=== PATIENT | male | born 1980 | race Caucasian/White ===

== ENCOUNTER 2020-04-14 08:15 | Outpatient (CLI) | payer MEDICAID, SELFPAY ==
[2020-04-14 12:58] LABS: Calculated LDL 159 mg/dL (<100); Cholesterol 222 mg/dL (<200); Glucose 96 mg/dL (74-106); HDL Cholesterol 34 mg/dL (40-60); Triglyceride 146 mg/dL (<150)
[2020-04-14 15:01] LABS: CREATININE 1.1 mg/dL (0.70-1.30); Potassium 4.3 mmol/L (3.5-5.1)
== END 2020-04-14 08:16 | disposition home or self-care (01) ==
PROVIDERS: PCP Family Medicine; Visit Provider Family Medicine
DX: I10 Essential (primary) hypertension (principal); E78.5 Hyperlipidemia, unspecified; R73.9 Hyperglycemia, unspecified
CPT/HCPCS: 36415; 80061; 82947; 82565; 84132

== ENCOUNTER 2022-01-19 08:40 | Outpatient (CLI) | payer MEDICAID, SELFPAY ==
[2022-01-19 12:30] LABS: HCT 45.8 % (40.0-50.0); HGB 15.8 g/dL (13.5-17.5); MCH 29.6 pg (27.0-33.0); MCHC 34.5 % (32.0-36.0); MCV 86 fL (80-95); MPV 10.4 fL (8.0-11.0); Platelet Count 241 10^3/uL (130-400); RBC 5.33 10^6/uL (4.36-5.78); RDW 12.5 % (11.8-14.1); RDW-SD 38.9 fL; WBC 7.89 10^3/uL (4.4-10.8)
[2022-01-19 12:50] LABS: ALT 43 U/L (16-63); AST 21 U/L (15-37); Albumin 4.3 g/dL (3.4-5.0); Alkaline Phosphatase 55 U/L (46-116); Anion Gap 9.3 mmol/L (3-11); BUN 15 mg/dL (7-18); Bilirubin, Total 0.5 mg/dL (0.2-1.0); CO2 25.7 mmol/L (21.0-32.0); CREATININE 1.1 mg/dL (0.70-1.30); Calcium 9.2 mg/dL (8.5-10.1); Calculated LDL 138 mg/dL (<100); Chloride 104 mmol/L (98-107); Cholesterol 218 mg/dL (<200); Estimated GFR 85.95 (mL/min/1.73m2); Glucose 100 mg/dL (74-106); HDL Cholesterol 55 mg/dL (40-60); Potassium 4.1 mmol/L (3.5-5.1); Sodium 139 mmol/L (136-145); Total Protein 7.7 g/dL (6.4-8.2); Triglyceride 125 mg/dL (<150)
== END 2022-01-19 08:41 | disposition home or self-care (01) ==
LOC: LOS 08:41
PROVIDERS: PCP Family Medicine; Referring Provider Family Medicine; Visit Provider Family Medicine
DX: E78.5 Hyperlipidemia, unspecified (principal); R53.83 Other fatigue; R10.9 Unspecified abdominal pain
CPT/HCPCS: 36415; 80053; 80061; 85027

== ENCOUNTER 2023-01-08 09:42 | Emergency (ER) | payer MEDICAID, SELFPAY ==
[2023-01-08 09:46] VITALS: BP 157/83; PULSE 71; RESP 14; TEMP 36.6; O2SAT 97
[2023-01-08 10:09] LABS: Abs Immature Grans 0.09 10^3/uL (0.0-0.06); Absolute Eosinophil Count 0.16 10^3/uL (0.0-0.7); Absolute Lymphocyte Count 2.63 10^3/uL (1.2-3.4); Absolute Monocyte Count 0.69 10^3/uL (0.1-0.8); Basophils % 0.9; Eosinophils % 1.5; HCT 45.8 % (40.0-50.0); HGB 15.8 g/dL (13.5-17.5); Immature Grans % 0.8; MCH 29.4 pg (27.0-33.0); MCHC 34.5 % (32.0-36.0); MCV 85 fL (80-95); MPV 10.3 fL (8.0-11.0); Monocytes % 6.3; Neutrophils % 66.5; Platelet Count 288 10^3/uL (130-400); RBC 5.38 10^6/uL (4.36-5.78); RDW 12.6 % (11.8-14.1); RDW-SD 38.8 fL; WBC 10.97 10^3/uL (4.4-10.8)
[2023-01-08 10:12] LABS: Bilirubin Negative (Negative); Blood Large (Negative); Clarity Clear (Clear); Glucose Negative (Negative); Ketones Negative (Negative); Leukocyte Esterase Negative (Negative); Nitrite Negative (Negative); Specific Gravity >= 1.030 (1.005-1.025); Urobilinogen 0.2 mg/dL (Up to 0.2); pH 5.5 (5-8)
[2023-01-08] MEDS: Normal Saline - Diluent 50 ML VIAL IJ (10:15)
--- NOTE | 2023-01-08 10:15 | DI.CT_ITS ---
Exam(s) CT RENAL COLIC WO EXAM: CT RENAL COLIC WO CLINICAL HISTORY: pain LLQ to back, hematuria. TECHNIQUE: Imaging Protocol: Axial computed tomography images with coronal and sagittal reformatted images were created and reviewed. CONTRAST MATERIAL: Noncontrast COMPARISON: No exams were available for comparison FINDINGS: ABDOMEN: Lung Bases: Normal where visualized. Liver: Enlarged. Diffuse moderate hepatic steatosis. No measurable mass. Gallbladder and biliary tract: No radiodense calculus or dilation. Pancreas: Normal density, no calcifications or inflammatory process. Spleen: Normal. Kidneys: Normal size, contour and axis. No radiodense stones. There is minimal left perinephric stra nding. The left ureter is slightly dilated compared to the right. No masses seen. Adrenal glands: No masses seen. Abdominal Aorta: Abdominal portion non-dilated. Soft tissues: Fatty containing right inguinal hernia. PELVIS: Bladder: Symmetric distention, no gross wall thickening. 2 millimeter stone seen in the right side of the bladder posteriorly consistent with a recently passed stone.No visible mass. Bowel: No obstruction or bowel wall thickening. Diverticulosis. No evidence of diverticulitis. No rmal quantity of stool. Appendix normal. Reproductive: Unremarkable. Peritoneal cavity: No ascites, collection or mesenteric inflammatory response. Bones: Unremarkable for age.. IMPRESSION: Small calculus in the urinary bladder likely originated from the left kidney as there is mild left pe rinephric stranding and minimal ureteral dilatation. RADIATION DOSE DELIVERED: Total DLP DATA REPOSITORY: All CT scans at this facility are submitted to the National Radiology Data Registry (NRDR) Dose Index Registry (DIR) with the [employer] ([employer]). RADIATION OPTIMIZATION: All CT scans at this facility use at least one of these dose optimization te chniques: automated exposure control; mA and/or kV adjustment per patient size (includes targeted exa ms where dose is matched to clinical indication); or iterative reconstruction.
[2023-01-08 10:24] LABS: ALT 39 U/L (16-63); AST 20 U/L (15-37); Albumin 4.5 g/dL (3.4-5.0); Alkaline Phosphatase 63 U/L (46-116); Anion Gap 12.8 mmol/L (3-11); BUN 15 mg/dL (7-18); Bilirubin, Total 0.5 mg/dL (0.2-1.0); CO2 21.2 mmol/L (21.0-32.0); CREATININE 1.3 mg/dL (0.70-1.30); Calcium 9.2 mg/dL (8.5-10.1); Chloride 103 mmol/L (98-107); Glucose 147 mg/dL (74-106); Lipase 79 U/L (16-77); Potassium 3.6 mmol/L (3.5-5.1); Sodium 137 mmol/L (136-145); Total Protein 7.9 g/dL (6.4-8.2)
[2023-01-08 10:24] LABS: Bacteria Negative HPF (Negative); C & S Indicated? No; Casts Negative LPF (Negative); Crystals Negative HPF (Negative); Epithelial Cells Rare HPF (Negative); Mucus Trace (Negative); RBC >50 HPF (0-2); WBC 0-2 HPF (0-5)
[2023-01-08] MEDS: Ketorolac 30 MG/ML VIAL IVP (10:33)
[2023-01-08] MEDS: Normal Saline 1,000 ML 1000 ML IV (10:33)
[2023-01-08 10:35] VITALS: BP 132/80; PULSE 57; O2SAT 97
--- NOTE | 2023-01-08 10:40 | W.ED.GENAD ---
Discharge Plan Disposition Patient Disposition: Home Condition: Stable Discharge Details Clinical Impression: Left renal stone, Diverticulosis, Enlargement of liver Primary Care Provider: Chris Winslow ED Provider: Nic Bolanos Home Meds and New Rx's Prescriptions: Continued losartan 50 mg tablet 50 mg PO DAILY Qty: 90 3RF Discontinued No Daily Meds Discharge Instructions Instructions: Diverticulosis (ED), Kidney Stones (ED) Additional Instructions: Please be sure to review the results of your CT imaging with your primary care physician. CT showed liver enlargement and decreased attenuation consistent with fatty infiltration or other causes of hepatocellular disease. Please take ibuprofen over the counter. Take 600mg by mouth every 6 hours as needed for pain. Please drink plenty of fluid to stay hydrated. Strain your urine to collect stone. Follow-up with your primary care physician. Return to the ER immediately for any worsening or new concerning symptoms. Referrals: Chris Winslow MD [Primary Care Provider] - Medical Decision Making [id number]?42-year-old male here with severe left lower quadrant pain rating to his back over the past 2 hours. While examining the patient he had significant improvement in pain suddenly. Urinalysis reviewed and hematuria noted. Patient does have significant lactic acidosis and leukocytosis. Consider septic renal stone. Plan to obtain CT of the abdomen pelvis to assess for acute surgical pathology. We will give IV fluid and Toradol IV. 1134 --CT of the abdomen pelvis interpreted by radiology:IMPRESSION: 1. Probable recent passage of the tiny calculus into the urinary bladder. There is a small amount of left perinephric fat stranding suggesting this is the site of origin. 2. Uncomplicated colonic diverticulosis. 3. The liver is enlarged and of decreased attenuation consistent with fatty infiltration or other causes of hepatocellular disease. All results were discussed with the patient. Patient reassessed and continues to be pain-free. Plan for follow-up with PCP. Lab Data Lab results reviewed: Yes I reviewed the patient's lab results. Labs: Laboratory Tests Range/Units 01/08/23 01/08/23 01/08/23 09:50 10:06 11:13 WBC (4.4-10.8) 10^3/uL 10.97 H RBC (4.36-5.78) 10^6/uL 5.38 Hgb (13.5-17.5) g/dL 15.8 Hct (40.0-50.0) % 45.8 MCV (80-95) fL 85 MCH (27.0-33.0) pg 29.4 MCHC (32.0-36.0) % 34.5 RDW (11.8-14.1) % 12.6 Plt Count (130-400) 10^3/uL 288 MPV (8.0-11.0) fL 10.3 Immature Gran % 0.8 Neutrophils % 66.5 Lymphocytes % 24.0 Monocytes % 6.3 Eosinophils % 1.5 Basophils % 0.9 Nucleated RBC % (0.0-0.3) % 0.0 Absolute Neutrophils (1.2-6.7) 10^3/uL 7.30 H Absolute Lymphocytes (1.2-3.4) 10^3/uL 2.63 Absolute Monocytes (0.1-0.8) 10^3/uL 0.69 Absolute Eosinophils (0.0-0.7) 10^3/uL 0.16 Absolute Basophils (0.0-0.2) 10^3/uL 0.10 VBG Lactate (0.6-1.4) mmol/L 4.0 H* 1.7 H Sodium (136-145) mmol/L 137 Potassium (3.5-5.1) mmol/L 3.6 Chloride (98-107) mmol/L 103 Carbon Dioxide (21.0-32.0) mmol/L 21.2 Anion Gap (3-11) mmol/L 12.8 H BUN (7-18) mg/dL 15 Creatinine (0.70-1.30) mg/dL 1.3 Est GFR (CKD-EPI 2020) (mL/min/1.73m2) 69.90 Glucose (74-106) mg/dL 147 H Calcium (8.5-10.1) mg/dL 9.2 Total Bilirubin (0.2-1.0) mg/dL 0.5 AST (15-37) U/L 20 ALT (16-63) U/L 39 Alkaline Phosphatase (46-116) U/L 63 Total Protein (6.4-8.2) g/dL 7.9 Albumin (3.4-5.0) g/dL 4.5 Lipase (16-77) U/L 79 H Urine Color (Yellow) Yellow Urine Clarity (Clear) Clear Urine pH (5-8) 5.5 Ur Specific [place] (1.005-1.025) >= 1.030 H Urine Protein (Negative) mg/dL Negative Urine Ketones (Negative) mg/dL Negative Urine Blood (Negative) Large H Urine Nitrite (Negative) Negative Urine Bilirubin (Negative) Negative Urine Urobilinogen (Up to 0.2) mg/dL 0.2 Ur Leukocyte Esterase (Negative) Negative Urine RBC (0-2) HPF >50 H Urine WBC (0-5) HPF 0-2 Ur Epithelial Cells (Negative) HPF Rare Urine Crystals (Negative) HPF Negative Urine Bacteria (Negative) HPF Negative Urine Casts (Negative) LPF Negative Urine Mucus (Negative) Trace Ur Culture Indicated? No Urine Glucose (Negative) mg/dL Negative HPI General Mode of arrival: ambulatory. Date/Time Provider Initiated Documentation: 01/08/23 09:58. Limitations to Documentation: no limitations. Information obtained by: patient. HPI Narrative: 42-year-old male presents with chief complaint of abdominal pain. Patient notes pain started today about 2 hours prior to arrival and has persisted. Pain is severe. Constant. Pain localized to left lower quadrant radiates to his back. Patient has never had similar in the past. He does note some discomfort with urination today. No hematuria. Related Data Home Medications Medication Instructions Recorded Confirmed losartan 50 mg tablet 50 mg PO DAILY #90 tabs 01/19/22 01/08/23 Previous Rx's Medication Instructions Recorded losartan 50 mg tablet 50 mg PO DAILY #90 tabs 01/19/22 Allergies Allergy/AdvReac Type Severity Reaction Status Date / Time No Known Allergies Allergy Verified 01/08/23 10:35 General Stated Complaint: Abd Prob MOJGAN: 3 Review of Systems All systems reviewed & are unremarkable except as noted in HPI and below Constitutional Constitutional: Denies fever(s) Gastrointestinal Gastrointestinal: Reports as per HPI PFSH All Active Problems (Updated 01/08/23 @ 11:34 by Nic Bolanos MD) Enlargement of liver (Acute) Diverticulosis (Acute) Left renal stone (Acute) Essential hypertension (Acute) Obesity (Chronic) Thoracic back pain (Acute) Family History Mother No problems noted. Father , age 53 Brain cancer Sister No problems noted. Sister No problems noted. Brother No problems noted. Brother No problems noted. Son No problems noted. Daughter No problems noted. Maternal Grandfather No problems noted. Paternal Grandfather No problems noted. Maternal Grandfather No problems noted. Paternal Grandmother No problems noted. Social History Smoking/Tobacco Use Status: Former Tobacco Use tobacco type: cigars Tobacco: How many years used: 6 Quit status: has quit before (Quit 06/11/21) Second Hand Exposure: Yes Smoking risk assessment performed?: Yes Alcohol Intake: current Alcohol Intake frequency: a few times a week Alcohol type: beer and hard liquor Drug use: Never Caregiver/Support person: No Household members: spouse and children Communication Needs: None Pets and animals: Yes Pets and animals: dog(s) Sexually active: Yes Do you think of yourself as: straight/heterosexual Current gender identity: male What is your relationship status?: How often do you talk on the phone with friends or family?: three or more times per week How often do you get together with friends or relatives?: once per week How often do you attend confucianism or gnosticism services?: 1-3 times per year Do you belong to any clubs or organized social groups?: no Panel score (0-1 are the most socially isolated patients): 2 What type of physical activity do you participate in: none Frequency: does not exercise Silvia/Judaism: Evangelical Special silvia needs: No Seatbelt use: sometimes Helmet use: Yes Drive intox or ride w/intox pile driver: No Do you feel safe at home: Yes Victim of physical abuse: No Victim of emotional abuse: No Victim of sexual abuse: No Would you like helpful sources: No Exam Const General: cooperative and no acute distress HENMT Mouth: moist mucous membranes Eyes Conjunctivae: normal conjunctivae Sclera: normal sclerae Resp Auscultation: clear to auscultation bilaterally, no rales, no rhonchi and no wheezes Cardio Jugular venous pressure: no JVD Rate: regular rate and not tachycardic Rhythm: regular rhythm GI Inspection: non-distended Palpation: soft, not firm, no guarding, no masses, not rigid and tender in the LLQ Auscultation: normal bowel sounds Penis: normal penis Scrotum: scrotum normal Testes: normal and no masses Other: No hernia Skin General skin exam: no rashes or lesions noted Neuro General: patient alert, patient awake and tone normal Extrem General: no edema Psych Appearance: grossly normal Mental Status: mental status grossly normal Course Vital Signs Vital signs: Vital Signs Temperature 36.6 C 01/08/23 09:46 Pulse 71 01/08/23 09:46 Respiratory Rate 14 01/08/23 09:46 Blood Pressure 157/83 H 01/08/23 09:46 Pulse Oximetry 97 01/08/23 09:46 Temperature 36.6 C 01/08/23 09:46 Temperature Source Oral 01/08/23 09:46 Pulse 57 L 01/08/23 10:35 Respiratory Rate 14 01/08/23 09:46 Respiratory Effort Normal 01/08/23 10:01 Blood Pressure 132/80 01/08/23 10:35 Blood Pressure Position Sitting 01/08/23 09:46 Pulse Oximetry 97 01/08/23 10:35 Oxygen Delivery Method Room Air 01/08/23 09:46 Oxygen Flow Rate 0 01/08/23 09:46 Pain Level 10 01/08/23 09:46 Lab/Test Results Lab/Test Results: Laboratory Tests Range/Units 01/08/23 01/08/23 09:50 10:06 WBC (4.4-10.8) 10^3/uL 10.97 H RBC (4.36-5.78) 10^6/uL 5.38 Hgb (13.5-17.5) g/dL 15.8 Hct (40.0-50.0) % 45.8 MCV (80-95) fL 85 MCH (27.0-33.0) pg 29.4 MCHC (32.0-36.0) % 34.5 RDW (11.8-14.1) % 12.6 Plt Count (130-400) 10^3/uL 288 MPV (8.0-11.0) fL 10.3 Immature Gran % 0.8 Neutrophils % 66.5 Lymphocytes % 24.0 Monocytes % 6.3 Eosinophils % 1.5 Basophils % 0.9 Nucleated RBC % (0.0-0.3) % 0.0 Absolute Neutrophils (1.2-6.7) 10^3/uL 7.30 H Absolute Lymphocytes (1.2-3.4) 10^3/uL 2.63 Absolute Monocytes (0.1-0.8) 10^3/uL 0.69 Absolute Eosinophils (0.0-0.7) 10^3/uL 0.16 Absolute Basophils (0.0-0.2) 10^3/uL 0.10 VBG Lactate (0.6-1.4) mmol/L 4.0 H* Sodium (136-145) mmol/L 137 Potassium (3.5-5.1) mmol/L 3.6 Chloride (98-107) mmol/L 103 Carbon Dioxide (21.0-32.0) mmol/L 21.2 Anion Gap (3-11) mmol/L 12.8 H BUN (7-18) mg/dL 15 Creatinine (0.70-1.30) mg/dL 1.3 Est GFR (CKD-EPI 2020) (mL/min/1.73m2) 69.90 Glucose (74-106) mg/dL 147 H Calcium (8.5-10.1) mg/dL 9.2 Total Bilirubin (0.2-1.0) mg/dL 0.5 AST (15-37) U/L 20 ALT (16-63) U/L 39 Alkaline Phosphatase (46-116) U/L 63 Total Protein (6.4-8.2) g/dL 7.9 Albumin (3.4-5.0) g/dL 4.5 Lipase (16-77) U/L 79 H Urine Color (Yellow) Yellow Urine Clarity (Clear) Clear Urine pH (5-8) 5.5 Ur Specific [place] (1.005-1.025) >= 1.030 H Urine Protein (Negative) mg/dL Negative Urine Ketones (Negative) mg/dL Negative Urine Blood (Negative) Large H Urine Nitrite (Negative) Negative Urine Bilirubin (Negative) Negative Urine Urobilinogen (Up to 0.2) mg/dL 0.2 Ur Leukocyte Esterase (Negative) Negative Urine RBC (0-2) HPF >50 H Urine WBC (0-5) HPF 0-2 Ur Epithelial Cells (Negative) HPF Rare Urine Crystals (Negative) HPF Negative Urine Bacteria (Negative) HPF Negative Urine Casts (Negative) LPF Negative Urine Mucus (Negative) Trace Ur Culture Indicated? No Urine Glucose (Negative) mg/dL Negative
--- NOTE | 2023-01-08 10:51 | DI.VRAD_ITS ---
PROCEDURE INFORMATION: Exam: CT Abdomen And Pelvis Without Contrast Exam date and time: 01/08/2023 10:28 AM Age: 42 years old Clinical indication: Other: Pain llq to back, hematuria TECHNIQUE: Imaging protocol: Computed tomography of the abdomen and pelvis without contrast. COMPARISON: No relevant prior studies available. FINDINGS: Lungs: No consolidations or pleural effusions. Liver: The liver is enlarged and of decreased attenuation consistent with fatty infiltration or other causes of hepatocellular disease. No liver cysts or masses. Gallbladder and bile ducts: The gallbladder is normal. Pancreas: The pancreas is normal. Spleen: The spleen is normal. Adrenal glands: The adrenal glands are normal. Kidneys and ureters: The renal cortices are normal in appearance. No cysts or masses. Minimal amount of left perinephric fat stranding. No hydronephrosis or nephrolithiasis. Stomach and bowel: There is no bowel wall thickening. No signs of obstruction. There are many uncomplicated colonic diverticula. Appendix: A normal appendix is identified. Intraperitoneal space: Unremarkable. No free air. No significant fluid collection. Vasculature: Unremarkable. No abdominal aortic aneurysm. Lymph nodes: Unremarkable. No enlarged lymph nodes. Urinary bladder: Tiny 0.1-0.2 cm dependent calculus. No wall thickening. Reproductive: Unremarkable as visualized. Bones/joints: Unremarkable. No acute fracture. Soft tissues: Unremarkable. IMPRESSION: 1. Probable recent passage of the tiny calculus into the urinary bladder. There is a small amount of left perinephric fat stranding suggesting this is the site of origin. 2. Uncomplicated colonic diverticulosis. 3. The liver is enlarged and of decreased attenuation consistent with fatty infiltration or other causes of hepatocellular disease. Dictated and Authenticated by: Singh Virgen MD. Ordering:ABHILASH Lucero MD
[2023-01-08 11:20] LABS: Lactate 1.7 mmol/L (0.6-1.4)
[2023-01-08 11:44] VITALS: TEMP 36.6
== END 2023-01-08 11:45 | disposition home or self-care (01) ==
PROVIDERS: Emergency Provider Student in an Organized Health Care Education/Training Program; PCP Family Medicine
DX: R10.32 Left lower quadrant pain (principal); K57.30 Diverticulosis of large intestine without perforation or abscess without bleeding; R16.0 Hepatomegaly, not elsewhere classified; Z87.891 Personal history of nicotine dependence
CPT/HCPCS: 36415; 80053; 83690; 96361; 96374; 99284; 74176; 81003; 81015; 83605; 85025; J1885

== ENCOUNTER 2023-01-11 21:47 | Outpatient (REF) | payer MEDICAID, SELFPAY ==
[2023-01-19 18:22] LABS: Source: Left Kidney
== END 2023-01-11 21:48 | disposition home or self-care (01) ==
LOC: LBN 21:47
PROVIDERS: PCP Family Medicine; Visit Provider Family Medicine
DX: N20.0 Calculus of kidney (principal)
CPT/HCPCS: 82365

== ENCOUNTER 2023-07-25 10:40 | Outpatient (CLI) | payer MEDICAID, SELFPAY ==
[2023-07-25 12:30] LABS: Hemoglobin A1C 5.3 % (<5.7)
[2023-07-25 12:39] LABS: CREATININE 1.2 mg/dL (0.70-1.30); Calculated LDL 130 mg/dL (<100); Cholesterol 200 mg/dL (<200); Estimated GFR 76.48 (mL/min/1.73m2); HDL Cholesterol 52 mg/dL (40-60); Potassium 4.2 mmol/L (3.5-5.1); Triglyceride 94 mg/dL (<150)
== END 2023-07-25 10:41 | disposition home or self-care (01) ==
LOC: LOS 10:41
PROVIDERS: PCP Family Medicine; Referring Provider Family Medicine; Visit Provider Family Medicine
DX: I10 Essential (primary) hypertension (principal); E78.5 Hyperlipidemia, unspecified; E11.51 Type 2 diabetes mellitus with diabetic peripheral angiopathy without gangrene
CPT/HCPCS: 36415; 80061; 82565; 83036; 84132

== ENCOUNTER 2024-02-16 14:59 | Outpatient (CLI) | payer MEDICAID, SELFPAY ==
--- NOTE | 2024-02-16 12:45 | DI.RAD_ITS ---
Exam(s) XR CHEST 2V PA LATERAL EXAM: XR CHEST 2V PA LATERAL CLINICAL HISTORY: Cough, R05.9, eval pna TECHNIQUE: 2D digital imaging was performed. Two views. COMPARISON: No exams were available for comparison FINDINGS: HEART: Normal size. Aorta: Not dilated. PULMONARY VASCULATURE: Normal. MEDIASTINUM: Unremarkable. LUNGS: Clear. PLEURAL SPACE: No pleural effusion or pneumothorax. BONE:Unremarkable for age. SOFT TISSUES: Unremarkable. IMPRESSION: No acute abnormality. DATA REPOSITORY: RADIATION DOSE DELIVERED:
== END 2024-02-16 15:19 ==
LOC: DI 15:02
PROVIDERS: PCP Family Medicine; Visit Provider Nurse Practitioner Family
DX: R05.9 Cough, unspecified (principal)
CPT/HCPCS: 71046

== ENCOUNTER 2024-08-01 08:57 | Outpatient (CLI) | payer MEDICAID, SELFPAY ==
[2024-08-01 12:41] LABS: CREATININE 1.1 mg/dL (0.70-1.30); Calculated LDL 120 mg/dL (<100); Cholesterol 195 mg/dL (<200); Estimated GFR 84.37 (mL/min/1.73m2); HDL Cholesterol 41 mg/dL (>or=40); Potassium 3.8 mmol/L (3.5-5.1); Triglyceride 173 mg/dL (<150)
[2024-08-01 18:19] LABS: PSA, Screening 0.8 ng/mL (<=2.5)
[2024-08-17 10:11] LABS: Testosterone, Free 8.53 ng/dL (4.26-16.4); Testosterone, Total 266 ng/dL (240-950)
== END 2024-08-01 08:58 | disposition home or self-care (01) ==
PROVIDERS: PCP Family Medicine; Referring Provider Family Medicine; Visit Provider Family Medicine
DX: E78.5 Hyperlipidemia, unspecified (principal); I10 Essential (primary) hypertension; Z12.5 Encounter for screening for malignant neoplasm of prostate; Z00.00 Encounter for general adult medical examination without abnormal findings
CPT/HCPCS: 36415; 80061; 84153; 84402; 84403; 82565; 84132